=== PATIENT | female | born 1955 | race American Indian/Alaskan Native ===

== ENCOUNTER 2017-02-07 07:01 | Outpatient (CLI) | payer OTHER ==
--- NOTE | 2017-02-07 12:16 | Mammography Report ---
Bilateral digital screening mammogram with CAD. Comparison study is dated February 08, 2016. Findings: There are scattered fibroglandular densities. There are new calcifications in the upper-outer quadrant of the left breast. No architectural distortion or masses seen. Impression: New left microcalcifications. BI-RADS code: 0. Recommendation: Spot compression medication images.
== END 2017-02-07 07:02 | disposition home or self-care (01) ==
LOC: MAMMO 07:01
PROVIDERS: ATTEND Family Medicine
DX: Z12.31 Encounter for screening mammogram for malignant neoplasm of breast (principal); I10 Essential (primary) hypertension
CPT/HCPCS: 77067; G0202

== ENCOUNTER 2017-02-14 06:57 | Outpatient (CLI) | payer OTHER ==
--- NOTE | 2017-02-14 10:01 | Mammography Report ---
Left mammogram: Magnification CC and lateral views are obtained of a grouping of microcalcifications in the upper lateral left breast. Calcifications appear relatively rounded and homogeneous. They do not have a linear distribution and are roughly 2 dozen and number. Review of prior exams demonstrate that they were present and appear unchanged from 2016 and are similar in 2015. There is somewhat less well visualized in 2015. Impression: Indeterminate left breast calcifications. Recommendation: Biopsy. These should be identifiable using stereotactic technique. Alternatively since they most likely have a low likelihood of malignancy a repeat magnification exam in 6 months should also be considered. BI-RADS CATEGORY: 4 = Suspicious ACR BI-RADS MAMMOGRAPHIC CODES: 0 = Needs additional imaging evaluation; 1 = Negative; 2 = Benign; 3 = Probably benign; 4 = Suspicious; 5 = Malignant; 6 = Known biopsy-proven malignancy COMMENT: 1. Dense breast tissue, i.e., adenosis, fibrocystic changes, etc., may obscure an underlying neoplasm. 2. Approximately 10% of cancers are not detected with mammography. 3. A negative mammography report should not delay biopsy if a clinically suspicious mass is present.
== END 2017-02-14 06:58 | disposition home or self-care (01) ==
LOC: MAMMO 06:57
PROVIDERS: ATTEND Family Medicine
DX: R92.1 Mammographic calcification found on diagnostic imaging of breast (principal); I10 Essential (primary) hypertension
CPT/HCPCS: G0206-LT

== ENCOUNTER 2018-03-20 07:46 | Outpatient (CLI) | payer OTHER ==
--- NOTE | 2018-03-20 09:02 | Mammography Report ---
BILATERAL MAMMOGRAM: FINDINGS: The breast tissue is heterogeneously dense, which could obscure detection of small masses (approximately 50%-75% glandular). No mass, distortion, suspicious calcification, or skin change is seen. No significant change when compared to prior examination in January of 2017. CAD was utilized. IMPRESSION: Negative mammogram. There is no mammographic evidence of malignancy. RECOMMENDATION: Follow-up per ACS guidelines. BI-RADS CATEGORY: 1 = Negative ACR BI-RADS MAMMOGRAPHIC CODES: 0 = Needs additional imaging evaluation; 1 = Negative; 2 = Benign; 3 = Probably benign; 4 = Suspicious; 5 = Malignant; 6 = Known biopsy-proven malignancy COMMENT: 1. Dense breast tissue, i.e., adenosis, fibrocystic changes, etc., may obscure an underlying neoplasm. 2. Approximately 10% of cancers are not detected with mammography. 3. A negative mammography report should not delay biopsy if a clinically suspicious mass is present. COMMENT: Patient follow-up letters are generated in [employer].
== END 2018-03-20 07:47 | disposition home or self-care (01) ==
LOC: MAMMO 07:46
PROVIDERS: ATTEND Family Medicine
DX: Z12.31 Encounter for screening mammogram for malignant neoplasm of breast (principal); I10 Essential (primary) hypertension
CPT/HCPCS: 77067

== ENCOUNTER 2019-03-26 06:43 | Outpatient (CLI) | payer OTHER ==
--- NOTE | 2019-03-26 16:29 | Mammography Report ---
DIGITAL SCREENING MAMMOGRAM WITH CAD, 03/26/2019 INDICATION: Routine screening mammography. TECHNIQUE: Digital bilateral 2D mammography was obtained in the craniocaudal and mediolateral obliq ue projections. This examination was interpreted with the benefit of Computer-Aided Detection analysi s. COMPARISON: 03/20/2018 FINDINGS: Breast Density: The breasts are almost entirely fatty. There is no evidence of dominant mass, suspicious calcifications or architectural distortion in eithe r breast. Stable bilateral calcifications with benign morphology. IMPRESSION: No mammographic evidence of malignancy. Follow up recommendation: Routine yearly BI-RADS Category 2: Benign. A "normal" or negative report should not discourage follow up or biopsy of a clinically significant f inding. A written summary of these findings will be mailed to the patient. The patient will be entered into a mammography reporting system which will generate a reminder letter for the patient's next appointmen t at the appropriate interval. The [employer] recommends yearly mammograms starting at age 40 and continuing as l norberto as a woman is in good health. Breast MRI is recommended for women with an approximate 20-25% or greater lifetime risk of breast cancer, including women with a strong family history of breast or ova emily cancer or who have been treated for Hodgkin's disease. Signer Name: Raul Wang MD Signed: 03/26/2019 4:25 PM Workstation Name: [id number]
== END 2019-03-26 06:44 | disposition home or self-care (01) ==
LOC: MAMMO 06:43
PROVIDERS: ATTEND Hospitalist
DX: Z12.31 Encounter for screening mammogram for malignant neoplasm of breast (principal)
CPT/HCPCS: 77067

== ENCOUNTER 2020-04-27 07:13 | Outpatient (CLI) | payer OTHER ==
--- NOTE | 2020-04-27 08:34 | Mammography Report ---
DIGITAL SCREENING MAMMOGRAM WITH CAD, 04/27/2020 INDICATION: Routine screening mammography. ROUTINE TECHNIQUE: Digital bilateral 2D mammography was obtained in the craniocaudal and mediolateral obliq ue projections. This examination was interpreted with the benefit of Computer-Aided Detection analysi s. COMPARISON: 03/26/2019, 03/20/2018, 02/14/2017, and 02/07/2017 thank you FINDINGS: Breast Density: There are scattered areas of fibroglandular density. There is no evidence of dominant mass, or architectural distortion in either breast. Cluster of calci fications in the upper outer left breast appears slightly increased in density since the previous exa minations. Calcifications are located approximately 8-9 cm from the nipple, posterior depth. IMPRESSION: Follow up recommendation: Special View: Mag Category 0: Incomplete. Needs additional imaging evaluation and/or prior mammograms for comparison. A "normal" or negative report should not discourage follow up or biopsy of a clinically significant f inding. A written summary of these findings will be mailed to the patient. The patient will be entered into a mammography reporting system which will generate a reminder letter for the patient's next appointmen t at the appropriate interval. The [employer] recommends yearly mammograms starting at age 40 and continuing as l norberto as a woman is in good health. Breast MRI is recommended for women with an approximate 20-25% or greater lifetime risk of breast cancer, including women with a strong family history of breast or ova emily cancer or who have been treated for Hodgkin's disease. Signer Name: Adriel Monroe MD Signed: 04/27/2020 8:29 AM Workstation Name: [email or web address]
== END 2020-04-27 07:14 | disposition home or self-care (01) ==
LOC: MAMMO 07:13
PROVIDERS: ATTEND Internal Medicine
DX: Z12.31 Encounter for screening mammogram for malignant neoplasm of breast (principal); N64.89 Other specified disorders of breast
CPT/HCPCS: 77067

== ENCOUNTER 2020-06-16 09:42 | Outpatient (CLI) | payer OTHER ==
--- NOTE | 2020-06-16 10:33 | Mammography Report ---
DIGITAL DIAGNOSTIC MAMMOGRAM WITH CAD , 06/16/2020 CLINICAL INFORMATION / INDICATION: Screening recall of the left breast. Patient was recalled from [facility] for left breast calcifications. TECHNIQUE: Digital left mammographic imaging was performed. Magnification views were obtained. This examination was interpreted with the benefit of Computer-aided Detection analysis. COMPARISON: Screening mammogram, 04/27/2020, 03/26/2019, 03/20/2018, 02/07/2017. Left diagnostic mammogra m, 02/14/2017 FINDINGS: Breast Density: There are scattered areas of fibroglandular density. Magnification views of the left breast were obtained which demonstrate a 7 mm cluster of heterogeneou s calcifications in the upper outer quadrant at the 2:00 position posterior depth. These appear sligh tly more conspicuous when compared to multiple prior studies. IMPRESSION: Left breast calcifications at the 2:00 position as described which are low suspicion for malignancy. Stereotactic guided biopsy is recommended. Follow up recommendation: Biopsy BI-RADS Category 4: Suspicious for Malignancy. A "normal" or negative report should not discourage follow up or biopsy of a clinically significant f inding. A written summary of these findings will be mailed to the patient. The patient will be entered into a mammography reporting system which will generate a reminder letter for the patient's next appointmen t at the appropriate interval. According to the [employer], yearly mammograms are recommended starting at age 40 and continuing as long as a woman is in good health. Breast MRI is recommended for women with an martínez roximately 20-25% or greater lifetime risk of breast cancer, including women with a strong family his tory of breast or ovarian cancer and women who have been treated for Hodgkin's disease. Signer Name: Holley Lam MD Signed: 06/16/2020 10:29 AM Workstation Name: [email or web address]
== END 2020-06-16 09:43 | disposition home or self-care (01) ==
LOC: MAMMO 09:42
PROVIDERS: ATTEND Internal Medicine
DX: N64.89 Other specified disorders of breast (principal)

== ENCOUNTER 2020-07-15 08:10 | Outpatient (CLI) | payer OTHER ==
--- NOTE | 2020-07-15 10:58 | Mammography Report ---
STEREOTACTIC GUIDED LEFT BREAST BIOPSY, 07/15/2020 CLINICAL INFORMATION / INDICATION: ABNORMAL MAMMOGRAM/LEFT BREAST CALCIFICATIONS. COMPARISON: Recent mammograms 04/27/2020 and 06/16/2020 PROCEDURE: Risks, benefits, and indications to the procedure were discussed with the patient in detail, includin g bleeding, infection, hematoma formation, and inadequate tissue sampling. The patient agreed to proc eed with both verbal and written consent. A timeout procedure was performed with 2 patient identifier s. The patient was placed in the prone position on the biopsy table. Targeted stereotactic images were o btained of the area of interest. The targeted area was identified and coordinates were determined. Th e breast was cleansed and prepped in the usual sterile fashion. Lidocaine 1% with and without epineph rine was used for local anesthesia. Under direct stereotatic guidance, an 8 gauge Mammotome biopsy de vice was advanced to the correct position and multiple vacuum-assisted core samples were obtained. De spite multiple attempts to achieve anesthesia, the patient remained highly uncomfortable complaining of pain throughout the biopsy procedure. After a few samples were obtained, the procedure was termina deepika due to patient's inability to tolerate procedure.. A biopsy marker was then deployed at the biops y site. The biopsy device was removed. Upon removal of the biopsy device, the biopsy clip was extrude d. Hemostasis was achieved with manual pressure. A sterile pressure dressing was applied to the skin. Post-biopsy mammogram was obtained. Following completion of the procedure, the patient experienced c hills. Chills resolved within 5 minutes after placing a heated blanket around the patient. There was no elevated heart rate or complaint of difficulty breathing/shortness of breath. No complications were encountered. Postprocedure mammogram shows biopsy cavity in the expected location. The calcifications in question are not well visualized probably due to local lidocaine/hemorrhage from biopsy. Postbiopsy instructions were discussed with the patient and given in writing. IMPRESSION: 1. Stereotactic guided left breast biopsy was performed. Unfortunately, no calcifications were confid ently identified in the specimen radiograph. Local anesthesia was ineffective despite multiple attemp ts to achieve pain control. We will await pathology results. Biopsy results are pending and will be reported in an addendum. Signer Name: Sil Irene MD Signed: 07/15/2020 10:54 AM Workstation Name: [id number]
== END 2020-07-15 08:11 | disposition home or self-care (01) ==
LOC: SPVWC 08:10
PROVIDERS: ATTEND Internal Medicine
DX: R92.1 Mammographic calcification found on diagnostic imaging of breast (principal); R92.8 Other abnormal and inconclusive findings on diagnostic imaging of breast; I10 Essential (primary) hypertension; G47.30 Sleep apnea, unspecified; Z79.899 Other long term (current) drug therapy; Z86.010 Personal history of colon polyps; Z98.890 Other specified postprocedural states
CPT/HCPCS: 19081; 77065; A4648; 88305

== ENCOUNTER 2021-02-24 12:20 | Outpatient (CLI) | payer MEDICARE, OTHER ==
--- NOTE | 2021-02-24 17:01 | Mammography Report ---
DIGITAL DIAGNOSTIC MAMMOGRAM WITH CAD , 02/24/2021 CLINICAL INFORMATION / INDICATION: This is a 6 month follow-up evaluation of the left breast after st ereotactic guided biopsy. TECHNIQUE: Digital left mammographic imaging was performed. Magnification views were obtained. This examination was interpreted with the benefit of Computer-aided Detection analysis. COMPARISON: Left stereotactic guided biopsy, 07/15/2020. Left diagnostic mammogram, 06/16/2020. Screen ing mammogram, 04/17/2020, 03/26/2019, 03/20/2018 and 02/14/2017 FINDINGS: Breast Density: There are scattered areas of fibroglandular density. No dominant mass, suspicious calcifications or architectural distortion in the left breast. Grouped amorphous calcifications are again noted in the upper outer quadrant and have not significant ly changed in number or morphology when compared to multiple prior studies. No new or suspicious find ing is identified. IMPRESSION: Stable postbiopsy appearance of the left breast with residual postbiopsy calcifications a ppearing unchanged. One additional diagnostic mammogram is recommended to assess ongoing stability. T he patient will be due for bilateral imaging at the time of her follow-up appointment. Follow up recommendation: Short term follow up in 6 months. BI-RADS Category 3: Probably Benign. Followup in 6 months. A "normal" or negative report should not discourage follow up or biopsy of a clinically significant f inding. A written summary of these findings will be mailed to the patient. The patient will be entered into a mammography reporting system which will generate a reminder letter for the patient's next appointmen t at the appropriate interval. According to the [employer], yearly mammograms are recommended starting at age 40 and continuing as long as a woman is in good health. Breast MRI is recommended for women with an martínez roximately 20-25% or greater lifetime risk of breast cancer, including women with a strong family his tory of breast or ovarian cancer and women who have been treated for Hodgkin's disease. Signer Name: Holley Lam MD Signed: 02/24/2021 4:56 PM Workstation Name: [id number]
== END 2021-02-24 12:21 | disposition home or self-care (01) ==
LOC: SPVWC 12:20
PROVIDERS: ATTEND Internal Medicine
DX: R92.1 Mammographic calcification found on diagnostic imaging of breast (principal)